=== PATIENT | male | born 1990 | race African-American/Black ===

== ENCOUNTER 2019-09-10 05:47 | Outpatient (RCR) | payer BC ==
[~2019-09-10] VITALS: Ht 182 cm; Wt 83.1 kg
== END 2019-09-10 14:10 | disposition home or self-care (01) ==
LOC: PREOP 05:47
PROVIDERS: ATTEND Surgery
DX: Z01.818 Encounter for other preprocedural examination (principal); K40.90 Unilateral inguinal hernia, without obstruction or gangrene, not specified as recurrent

== ENCOUNTER 2019-09-17 07:34 | Day surgery (SDC) | payer BC ==
[~2019-09-17] VITALS: Ht 182 cm; Wt 83.1 kg
[2019-09-17] VITALS (11 sets, daily range): BP systolic 109–140; BP diastolic 59–84
[2019-09-17] MEDS ORDERED: ceFAZolin 2 GM IV Premixed 50 ML IV ONE (08:00)
--- NOTE | 2019-09-17 08:17 | Progress Note-Pre Operative ---
Pre-Operative Progress Note H&P Reviewed The H&P was reviewed, patient examined and no changes noted. Time Seen by Provider: 08:12 Date H&P Reviewed: Sep 17, 2019 Time H&P Reviewed: 08:13 Pre-Operative Diagnosis: Incarcerated Right inguinal hernia NILS ANTONIO DO Sep 17, 2019 08:17
--- OUTSIDE RECORDS SUMMARY | 2019-09-17 08:22 | XMS REPORT | CCD ---
Author Author Junito Sandoval D.O. Organization [facility] Address [address] [place] [address] Phone Care Team Providers Care Ovens Supervisor Name Role Phone PP Unavailable CCM Unavailable Summary Purpose Interface Exchange Insurance Providers Payer name Policy type / Coverage type Covered green party ID Effective Begin Date Effective End Date Blue Cross Blue Shield Blue Cross/Blue Shield [id number] Unknown Unknown Family history Mother Diagnosis Age At Onset Hypertension Unknown Social History Social History Element Codes Description Effective Dates Marital status Unknown 09/03/2019 Number of children Unknown 1 09/03/2019 Employment Unknown Currently employed 09/03/[address]: 58559346 Current every day smoker Alcohol history SNOMED CT: 420228 Currently drinks alcohol 09/02 Frequency of drinks SNOMED CT: 153155454 10 drinks per week 08/13 Has the patient ever used illegal drugs? Unknown In the past only 09/03/2019 Allergies, Adverse Reactions, Alerts Substance Reaction Codes Entered Date Inactivated Date Status * NO KNOWN DRUG ALLERGIES Unknown 09/03/2019 No Inactiv e Date Active * NO KNOWN ENVIRONMENTAL ALLERGIES Unknown 09/03/2019 N o Inactive Date Active * NO KNOWN FOOD ALLERGIES Unknown 09/03/2019 No Inactiv e Date Active Problems Condition Codes Effective Dates Condition Status Cardiac arrhythmia ICD-9: 427.9 ICD-10: I49.9 09/03/2019 Active Right inguinal hernia ICD-9: 550.90 ICD-10: K40.90 09/03/2019 Active Medications No Medication History data Medication Administered No Medication Administered data Immunizations No Immunization data Results No Results data Procedures No Procedures data Vital Signs Date Vital 09/03/2019 Blood Pressure 1: 122/74 Code: 8480-6 BMI: 25.4 Code: 52620-6 Heart Rate 1: 72 bpm Height: 5'12" Respiratory Rate: 20 bpm SpO2: 99% Tempera ture: 37.2 (C) / 98.9 (F) Weight: 186 lbs Functional Status No Functional Status data Reason For Visit Reason For Visit Effective Dates Notes ~generic 09/03/2019 New Patient--dayron simon visit Encounters Encounter Performer Location Codes Date () OFFICE/OUTPATIENT VISIT NEW Diagnosis: Right inguinal hernia[ICD10: K40.90] Diagnosis: Cardiac arrhythmia[ICD10: I49.9] [facility] CPT-4: 73357 09/03/2019 Plan of Care Planned Activity Notes Codes Status Date Visit Diagnosis Plan: Right inguinal hernia Discussion : Referral to surgery ICD-9 : 550.90 ICD-10 : K40.90 09/03/2019 Visit Diagnosis Plan: Cardiac arrhythmia Discussion: S tart with echocardiogram Discussed trying to obtain record from previous physician but was 11 years ago so discussed that if ECHO does not show LAE or other issues needs to try to get immediately to a ER or Urgent Care if has an episode of heart skipping beats--he states could go months without any symptoms ICD-9 : 427.9 ICD-10 : I49.9 09/03/2019 Care Plan: Referral Order SNOMED-CT : 30 7594750 Pending 09/03/2019 Referral: Alireza Gonzalez WPtel: [address] [place], [place] [id number] Referral Appointment Requested Instructions No Instructions Medical Equipment No Medical Equipment data Health Concerns Section Health Concerns data not found Goals Section Goals data not found Interventions Section Interventions data not found Health Status Evaluations/Outcomes Section Health Status Evaluations/Outcomes data not found Advance Directives No Advance Directive data
--- OUTSIDE RECORDS SUMMARY | 2019-09-17 08:22 | XMS REPORT | Continuity of Care Document ---
Author Organization Unknown Address Unknown Phone Unavailable Allergies Active Description Code Type Severity Reaction Onset Reported/Identified Relationship to Patient Clinical Status Yes No Known Drug Allergies [id number] Drug Allergy Unknown N/A 09/10/2019 Medications There is no data. Problems Date Dx Coded Attending Type Code Diagnosis Diagnosed By 01/11/1409 NILS ANTONIO DO Ot K40.9 0 UNIL INGUINAL HERNIA, W/O OBST OR GANGR, 01/11/1409 NILS ANTONIO DO Ot Z01.8 18 ENCOUNTER FOR OTHER PREPROCEDURAL EXAMIN 09/03/2019 W I49.9 Card iac arrhythmia Orender, Jennifer S. 09/03/2019 W K40.90 Rig ht inguinal hernia Orender, Jennifer S. 09/04/2019 W I49.9 Card iac arrhythmia Orender, Jennifer S. 09/04/2019 W K40.90 Rig ht inguinal hernia Orender, Jennifer S. 09/10/2019 NILS ANTONIO DO B Ot K40.9 0 UNIL INGUINAL HERNIA, W/O OBST OR GANGR, 09/10/2019 NILS ANTONIO DO Ot Z01.8 18 ENCOUNTER FOR OTHER PREPROCEDURAL EXAMIN Procedures There is no data. Results There is no data. Encounters ACCT No. Visit Date/Time Discharge Status Pt. Type Provider Facility Loc./Unit Complaint [id number] 08/25/2019 11:23:52 08/25/2019 23:59:5 9 CLS Outpatient [id number] 09/10/2019 05:47:00 020 14:10:00 DIS Outpatient NILS ANTONIO DO [facility] PREOP INGUINAL HERNIA [id number] 09/17/2019 07:34:[address] Outpatient NILS ANTONIO DO [facility] SDC INGUINAL HERNIA
--- OUTSIDE RECORDS SUMMARY | 2019-09-17 08:22 | XMS REPORT | CCD ---
Author Author Junito Sandoval D.O. Organization [facility] Address [address] [place] [address] Phone Care Team Providers Care Laser Specialist Name Role Phone PP Unavailable CCM Unavailable Summary Purpose Interface Exchange Insurance Providers Payer name Policy type / Coverage type Covered alliance party ID Effective Begin Date Effective End Date Blue Cross Blue Shield Blue Cross/Blue Shield [id number] Unknown Unknown Family history Mother Diagnosis Age At Onset Hypertension Unknown Social History Social History Element Codes Description Effective Dates Marital status Unknown 09/03/2019 Number of children Unknown 1 09/03/2019 Employment Unknown Currently employed 09/03/[address]: 71804190 Current every day smoker Alcohol history SNOMED CT: 187830 Currently drinks alcohol 09/02 Frequency of drinks SNOMED CT: 360305549 10 drinks per week 08/13 Has the [...] 1: 122/74 Code: 8480-6 BMI: 25.4 Code: 21733-0 Heart Rate 1: 72 bpm Height: 5'12" [...] Diagnosis: Cardiac arrhythmia[ICD10: I49.9] [facility] CPT-4: 49986 09/03/2019 Plan of Care Planned Activity Notes [...] ICD-9 : 427.9 ICD-10 : I49.9 09/03/2019 Appointment: Johnny Sandoval WPtel: [address] [facility] NEW PATIENT 09/03/2019 Care Plan: Referral Order SNOMED-CT : 30 4448407 Pending 09/03/2019 Referral: Alireza Gonzalez WPtel: [address] [place], [place] [id number] Referral Appointment Requested Instructions No Instructions Medical Equipment No Medical Equipment data Health Concerns Section Health Concerns data not found Goals Section Goals data not found Interventions Section Interventions data not found Health Status Evaluations/Outcomes Section Health Status Evaluations/Outcomes data not found Advance Directives No Advance Directive data
--- OUTSIDE RECORDS SUMMARY | 2019-09-17 08:22 | XMS REPORT | CCD ---
Author Author Junito Sandoval D.O. Organization [facility] Address [address] [place] [address] Phone Care Team Providers Care Health Records Technology Teacher Name Role Phone PP Unavailable CCM Unavailable Summary Purpose Interface Exchange Insurance Providers Payer name Policy type / Coverage type Covered green party ID Effective Begin Date Effective End Date Blue Cross Blue Shield Blue Cross/Blue Shield [id number] Unknown Unknown Family history Mother Diagnosis Age At Onset Hypertension Unknown Social History Social History Element Codes Description Effective Dates Marital status Unknown 09/03/2019 Number of children Unknown 1 09/03/2019 Employment Unknown Currently employed 09/03/[address]: 19919687 Current every day smoker Alcohol history SNOMED CT: 893017 Currently drinks alcohol 09/02 Frequency of drinks SNOMED CT: 450948843 10 drinks per week 08/13 Has the [...] 1: 122/74 Code: 8480-6 BMI: 25.4 Code: 28234-5 Heart Rate 1: 72 bpm Height: 5'12" [...] Cardiac arrhythmia[ICD10: I49.9] Johnny [facility] CPT-4: 81159 09/03/2019 Plan of Care Planned Activity Notes [...] Care Plan: Referral Order SNOMED-CT : 30 3684562 Pending 09/03/2019 Referral: Alireza Gonzalez WPtel: [address] [place], [place] [id number] Referral Appointment Requested Instructions No Instructions Medical Equipment No Medical Equipment data Health Concerns Section Health Concerns data not found Goals Section Goals data not found Interventions Section Interventions data not found Health Status Evaluations/Outcomes Section Health Status Evaluations/Outcomes data not found Advance Directives No Advance Directive data
--- OUTSIDE RECORDS SUMMARY | 2019-09-17 08:22 | XMS REPORT | CCD ---
Author Author Junito Sandoval D.O. Organization [facility] Address [address] [place] [address] Phone Care Team Providers Care Tooling Mechanic Name Role Phone PP Unavailable CCM Unavailable Summary Purpose Interface Exchange Insurance Providers Payer name Policy type / Coverage type Covered libertarian ID Effective Begin Date Effective End Date Blue Cross Blue Shield Blue Cross/Blue Shield [id number] Unknown Unknown Family history Mother Diagnosis Age At Onset Hypertension Unknown Social History Social History Element Codes Description Effective Dates Marital status Unknown 09/03/2019 Number of children Unknown 1 09/03/2019 Employment Unknown Currently employed 09/03/[address]: 50180412 Current every day smoker Alcohol history SNOMED CT: 963259 Currently drinks alcohol 09/02 Frequency of drinks SNOMED CT: 485884587 10 drinks per week 08/13 Has the [...] 1: 122/74 Code: 8480-6 BMI: 25.4 Code: 34570-6 Heart Rate 1: 72 bpm Height: 5'12" [...] arrhythmia[ICD10: I49.9] [facility] CPT-4: 89546 09/03/2019 Plan of Care Planned Activity Notes [...] I49.9 09/03/2019 Appointment: Johnny Sandoval WPtel: [phone] [facility] NEW PATIENT 09/03/2019 Care Plan: Referral Order SNOMED-CT : 30 6626452 Pending 09/03/2019 Referral: Alireza Gonzalez WPtel: [address] [place], [place] [id number] Referral Appointment Requested Instructions No Instructions Medical Equipment No Medical Equipment data Health Concerns Section Health Concerns data not found Goals Section Goals data not found Interventions Section Interventions data not found Health Status Evaluations/Outcomes Section Health Status Evaluations/Outcomes data not found Advance Directives No Advance Directive data
[2019-09-17 08:24] LABS: BASOPHILS % (AUTO) 0 % (0-10); EOSINOPHILS # (AUTO) 0.2 10^3/uL (0.0-0.3); EOSINOPHILS % (AUTO) 2 % (0-10); HEMATOCRIT 42 % (40-54); HEMOGLOBIN 13.8 G/DL (13.3-17.7); LYMPHOCYTES # (AUTO) 2.2 X 10^3 (1.0-4.0); LYMPHOCYTES % (AUTO) 25 % (12-44); MEAN CORPUSCULAR HEMOGLOBIN 28 PG (25-34); MEAN CORPUSCULAR HGB CONC 33 G/DL (32-36); MEAN CORPUSCULAR VOLUME 86 FL (80-99); MEAN PLATELET VOLUME 11.3 FL (7.4-10.4); MONOCYTES # (AUTO) 0.5 X 10^3 (0.0-1.0); MONOCYTES % (AUTO) 6 % (0-12); NEUTROPHILS # (AUTO) 5.8 X 10^3 (1.8-7.8); NEUTROPHILS % (AUTO) 67 % (42-75); PLATELET COUNT 235 10^3/uL (130-400); RED CELL DISTRIBUTION WIDTH 12.6 % (10.0-14.5); WHITE BLOOD COUNT 8.6 10^3/uL (4.3-11.0)
[2019-09-17] MEDS: LACTATED RINGERS 1,000 ML IV PRN ×2 (08:26→11:21)
[2019-09-17] MEDS ORDERED: CATHETER FLUSH 10 ML SYR IV PRN (08:30)
[2019-09-17] MEDS ORDERED: ROCURONIUM 10 MG/ML 5 ML SYRINGE IV ONE (09:35)
[2019-09-17] MEDS ORDERED: ONDANSETRON 4 MG/2 ML (SDV) Z0FRAN ONE (09:35)
[2019-09-17] MEDS ORDERED: MIDAZOLAM 2 MG/2 ML (VERSED) VIAL ONE (09:35)
[2019-09-17] MEDS ORDERED: LIDOCAINE PF 2% 5 ML (XYLOCAINE) VIAL ONE (09:35)
[2019-09-17] MEDS ORDERED: proPOfol 200 MG/20 ML (DIPRIVAN) VIAL IV ONE (09:35)
[2019-09-17] MEDS ORDERED: NEOSTIGMINE 3 MG/3 ML VIAL ONE (09:36)
[2019-09-17] MEDS ORDERED: GLYCOPYRROLATE 0.2 MG/ML (ROBINUL) 2 ML VIAL ONE (09:36)
[2019-09-17] MEDS ORDERED: fentaNYL INJECTION 100 MCG/2 ML AMP ONE (09:36)
[2019-09-17] MEDS ORDERED: BUP/EPI 0.5% 1:200,000 (MARCAINE) 10ML VIAL IJ ONE (09:51)
--- NOTE | 2019-09-17 13:04 | Progress Note-Post Operative ---
Post-Operative Progess Note Surgeon (s)/Molder Machine Tender (s) Surgeon NILS ANTONIO DO Molder Machine Tender: Raul Pre-Operative Diagnosis Incarcerated Right inguinal hernia Post-Operative Diagnosis same - Indirect plus small Left indirect inguinal hernia Procedure & Operative Findings Date of Procedure 09/17/19 Procedure Performed/Findings Lap right inguinal herniarraphy with mesh placement, robotic assist Anesthesia Type GET Estimated Blood Loss Estimated blood loss (mL): scant Specimens/Packing Specimens Removed none NILS ANTONIO DO Sep 17, 2019 13:04
[2019-09-17] MEDS ORDERED: HYDR-4226 PO (13:05)
--- NOTE | 2019-09-17 13:06 | Discharge Inst-Surgical ---
Discharge Inst-Surgical Depart Medication/Instructions New, Converted or Re-Newed RX: RX Given to Pt/Family Patient Instructions Follow up Appt: Make appointment for 1 week. [phone] Instructions: No lifting greater than 20 pounds. No strenuous activity. May shower in 24 hours, no tub bath or soaking. Use incentive spirometer at home as directed. No Smoking Skin/Wound Care: May remove bandages in am. You need to leave the Dermabond on incision it will fall off on it's own. Symptoms to Report: Appetite Changes, Extremity Discoloration, Numbness/Tingling, Swelling Increased, Bleeding Excessive, Eyesight Changes, Pain Increased, Urine Color Change, Constipation(Persistent), Fever over 101 degree F, Pain/Pressure in chest, Urinating Difficulty, Cough Up/Vomit Blood, Heart Beat Irreg/Pounding, Pain/Pressure in jaw, Cramps in feet or legs, Lightheadedness, Pain/Pressure in shoulder, Diarrhea(Persistent), Memory Changes Suddenly, Questions/Concerns, Weight gain consecutive days, Dizziness/Fainting, Nausea/Vomiting, Shortness of Breath, Weight gain over 2 pounds If questions or concerns contact your physician Or seek help at emergency department. Activity Activity as Tolerated: Yes Activity Instructions: Avoid Stress to Incision Driving Instructions: No Driving/Refer to Dr. Roland Discharge Diet: No Restrictions Diet After 24 Hours: Clear Liquid if Nauseous If Any Problems/Questions/Issu: Contact Your Physician, Go to Emergency Room Skin/Wound Care Infection Signs and Symptoms: Increased Redness, Foul Odor of Wound, Increased Drainage, Skin Itchy or Has a Rash, Increased Swelling, Temperature Above 101 F Wound Care Comment: heating pad to shoulder or neck tonight for pain Bathing Instructions: Shower Stitches/Rahul/Dermabond Dis: Dermabond Ice Pack: Ice On and Off Site (at incisions as needed for pain) NILS ANTONIO DO Sep 17, 2019 13:06
[2019-09-17] MEDS ORDERED: SEVOFLURANE (ULTANE) 15 ML INHAL SOLN ONE (13:08)
--- NOTE | 2019-09-17 14:29 | Anesthesia-General Post-Op ---
General Patient Condition Mental Status/LOC: Same as Preop Cardiovascular: Satisfactory Nausea/Vomiting: Absent Respiratory: Satisfactory Pain: Controlled Complications: Absent Post Op Complications Complications None Follow Up Care/Instructions Patient Instructions None needed. Anesthesia/Patient Condition Patient Condition Patient is doing well, states he is "sore" and I assured him this is normal post-procedure. He has stable vital signs and no apparent adverse anesthesia problems. AYDEE GIVENS DO Sep 17, 2019 14:29
[2019-09-17] MEDS ORDERED: HYDROcodone/APAP 5 MG/325 MG (LORTAB) TAB ONE (14:45)
[2019-09-17] MEDS ORDERED: HYDROcodone/APAP 5 MG/325 MG (LORTAB) TAB PO ONE (15:00)
--- NOTE | 2019-09-18 03:53 | OPERATIVE REPORT ---
DATE OF SERVICE: PREOPERATIVE DIAGNOSIS: Incarcerated right inguinal hernia. POSTOPERATIVE DIAGNOSES: Incarcerated right inguinal hernia, indirect as well as a small left indirect inguinal hernia. PROCEDURE: Laparoscopic right inguinal herniorrhaphy and mesh placement robotically assisted. SURGEON: Nils Gonzalez DO SUPERVISOR FIBER LOCKING: Triston Carter DO. ANESTHESIA: General endotracheal tube. SPECIMENS: None. BLOOD LOSS: Minimal. FLUIDS: Per anesthesia. POSTOPERATIVE CONDITION: Stable. INDICATION FOR PROCEDURE: The patient is a 29-year-old male, who has had a large incarcerated right inguinal hernia diagnosed and he wanted to get this fixed. FINDINGS: The patient had a large indirect right inguinal hernia that had some intestine, but this was able to easily come out and then in a large hernia sac, he also had noted a small left indirect inguinal hernia seen. Pictures were taken of both. PROCEDURE NOTE: After informed consent was obtained, the patient was brought to the operating room, placed on the operating table in supine position. He was sterilely prepped and draped in normal fashion. Local lidocaine was used to infiltrate the skin above the umbilicus. I made the incision with #11 blade, carried down through the skin into subcutaneous tissue, then deepened down to subcutaneous tissue with Bovie electrocautery down to fascia. Fascia was incised with Bovie electrocautery, bluntly entered into the abdomen, swept a finger around, placed 0 Vicryl bjeews-ro-auwiu suture and placed an 11 mm trocar port under direct visualization. Created pneumoperitoneum and then placed 2 more ports in normal fashion using local lidocaine, 11 blade for stab incision and used the 8 mm robotic trocar ports watched them come in. At this point, then placed the patient in Trendelenburg and docked the robot, had seen some intestine in the right inguinal hernia and this came out easily and then took pictures of the large indirect right inguinal hernia and a small indirect left inguinal hernia. At this point, then made an incision approximately 8 cm away from the right inguinal hernia defect in the peritoneum and then carefully came down, came across the paramedian ligament as well as about 15 cm across to be able to create our space and then dissected through the peritoneum pushing this down gently trying to stay in the parietal space and then once with the paramedian ligament, went into the parietal space and then dissected down towards the pubic tubercle able to visualize the pubic tubercle and then cut take the peritoneum all the way down, able to see the critical view and be able to get 2 cm across the midline to the left side with dissection and then 2 cm posterior to Gage's ligament able to parietalized the vas deferens and spermatic vessels and into the groove between Gage's and iliac vein. He had a large hernia defect, it took about an hour to try and get this completely out. Once it was completely out, then we were able to dissect, make sure there was no peritoneum between the vas and the spermatic vessels. Able to visualize the direct hernia space. There is no hernia. There is no femoral hernia. There was a large indirect hernia space. Reduced a cord lipoma made sure that the posterior lateral dissection, dissected out about 15 or 16 cm and at this point, then placed a large Bard 3D mesh in. It was just over 15 cm with a wide overlap of the . Used a 3-0 Vicryl to then suture at the pubic tubercle as well as another one to hold it superiorly with a 3-0 Vicryl and at this point then elected to close the peritoneal defect with a 2-0 V-Loc suture running from the medial aspect to the lateral aspect tying to itself. Pulled out the very large hernia defect and elected to hold this up and tacked this to the top to hold this out of the way. Took pictures with the mesh and then took a picture with the peritoneum closed and looked very good at the end of the case and at this point then removed all ports under direct visualization, placed the patient supine and then closed the supraumbilical incision, closing the fascia with 0 Vicryl suture previously placed. Copiously irrigated all incisions and then closed the incision with 4-0 undyed Monocryl. Area was cleaned and dried. Dermabond placed as well as Band-Aids. The patient tolerated the procedure. Sponge, instrument and needle count correct at the end of the case. He was then transferred to recovery room in stable condition. Dr. Carter assisted in this case helping to make incisions, close incisions, identify anatomy and hold anatomy out of the way. He also passed suture ____. Job ID: [id number] DocumentID: [id number] Dictated Date: 09/17/2019 16:45:33 Welding Machine Operator Arc Date: 09/18/2019 03:52:05 Dictated By: NILS GONZALEZ DO
== END 2019-09-17 15:30 | disposition home or self-care (01) ==
LOC: SDC 07:34
PROVIDERS: ATTEND Surgery
DX: K40.30 Unilateral inguinal hernia, with obstruction, without gangrene, not specified as recurrent (principal); K40.90 Unilateral inguinal hernia, without obstruction or gangrene, not specified as recurrent; K21.9 Gastro-esophageal reflux disease without esophagitis; Z79.899 Other long term (current) drug therapy; Z87.891 Personal history of nicotine dependence; Z82.49 Family history of ischemic heart disease and other diseases of the circulatory system
CPT/HCPCS: 49650; 85025; 87081; C1781; 36415